=== PATIENT | female | born 1940 | race Caucasian/White ===

== ENCOUNTER → 2017-09-02 | Outpatient (CLI) | payer MEDICARE, BC ==
[~2017-09-02] MED LIST: GABA300 PO; Hydrocodone-Ap1 EA20 PO; IBUP800 PO; Oxycodone-Apap1 EAC3 PO; Triamterene W/1 EACH
[2017-09-06 13:05] LABS: HPV Genotype 16 Not Detected (NOTDET); HPV Genotype 18 Not Detected (NOTDET); HPV High Risk Other Not Detected (NOTDET)
== END | disposition home or self-care (01) ==
LOC: LAB SHORT 13:07 → OLS 13:07
PROVIDERS: Obstetrics & Gynecology Gynecology
DX: Z91.89 Other specified personal risk factors, not elsewhere classified (principal)
CPT/HCPCS: 87624; G0123

== ENCOUNTER → 2018-01-28 | Outpatient (CLI) | payer MEDICARE, BC | END | disposition home or self-care (01) | LOC: LAB SHORT 08:32 → LAB EV 08:32 | DX: M54.5 Low back pain (principal); G89.4 Chronic pain syndrome | CPT/HCPCS: G0480 ==

== ENCOUNTER → 2019-03-30 | Outpatient (CLI) | payer MEDICARE, BC ==
[2019-03-31 15:07] LABS: HPV 16 Negative (Negative); HPV 18 Negative (Negative); HPV OTHER HR TYPES Negative (Negative)
== END | disposition home or self-care (01) ==
LOC: LAB 11:30 → LAB SHORT 11:30
PROVIDERS: Obstetrics & Gynecology Gynecology
DX: Z91.89 Other specified personal risk factors, not elsewhere classified (principal)
CPT/HCPCS: 87624; G0123

== ENCOUNTER 2020-01-22 11:41 | Emergency (ER) | payer MEDICARE, BC ==
[~2020-01-22] VITALS: Ht 167.6 cm; Wt 53.5 kg
[~2020-01-22 11:41] MED LIST changes: +DYAZIDE 37.5-21 EACH PO; +GABAPENTIN600 MG PO; +LATANOPROST2.5 M1 BOTHEYES
[2020-01-22 12:23] LABS: BASOPHILS ABSOLUTE AUTO 0.07 K/mm3 (0.00-0.23); BASOPHILS PERCENT AUTO 1 % (0-2); EOSINOPHILS ABSOLUTE AUTO 0.14 K/mm3 (0.00-0.68); EOSINOPHILS PERCENT AUTO 2 % (0-6); Hematocrit 38.9 % (33.0-51.0); Hemoglobin 12.3 g/dL (11.5-16.0); IMMATURE GRAN ABSOLUTE AUTO 0.03 K/mm3 (0.00-0.10); IMMATURE GRAN PERCENT AUTO 1 % (0-1); LYMPHOCYTES ABSOLUTE AUTO 1.63 K/mm3 (0.84-5.20); LYMPHOCYTES PERCENT AUTO 25 % (21-46); MONOCYTES ABSOLUTE AUTO 0.62 K/mm3 (0.16-1.47); MONOCYTES PERCENT AUTO 10 % (4-13); Mean Corpuscular HGB Conc 31.6 g/dL (31.5-36.5); Mean Corpuscular Volume 98 fL (80-100); Mean Platelet Volume 10.5 fL (9.1-12.4); NEUTROPHILS ABSOLUTE AUTO 3.99 K/mm3 (1.96-9.15); NEUTROPHILS PERCENT AUTO 61 % (41-73); Platelet Count 225 K/mm3 (150-400); RDW Coefficient Variation 12.5 % (11.7-14.2); RDW Standard Deviation 45.3 fL (35.1-46.3); Red Blood Cell Count 3.97 M/mm3 (3.80-5.20); White Blood Cell Count 6.48 K/mm3 (4.00-11.30)
[2020-01-22 12:46] LABS: Albumin/Globulin Ratio 1.1 (0.8-1.8); Bilirubin, Total 0.4 mg/dL (0.1-1.0); Bun/Creatinine Ratio 26.1 (12.0-20.0); Calcium, Blood 8.7 mg/dL (8.5-10.1); Creatinine, Blood 1.15 mg/dL (0.40-1.00); Globulin, Blood 3.6 g/dL (2.2-4.0); Potassium, Blood 3.7 mmol/L (3.5-5.5); Total Protein, Blood 7.6 g/dL (6.4-8.2)
[2020-01-22 14:22] LABS: Source, Urine Clean Catch
[2020-01-22 14:27] LABS: Bilirubin, Urine Neg (Neg); Blood, Urine Neg (Neg); Glucose Qualitative, Urine Neg (Neg); Ketones, Urine 3+ (Neg); Leukocyte Esterase, Urine Neg (Neg); Nitrite, Urine Neg (Neg); Protein, Urine 1+ (Neg); Urobilinogen, Urine NORM (Normal)
[2020-01-22 14:28] LABS: Appearance, Urine Clear (Clear); Color, Urine Yellow (P-Yellow)
[2020-01-22] MEDS ORDERED: ONDA4ODT MM (14:54)
[2020-01-22] MEDS ORDERED: HYDR1TAB94 PO ×2 (14:54→15:12)
== END 2020-01-22 15:45 | disposition home or self-care (01) ==
LOC: ER 11:41
PROVIDERS: Emergency Medicine; Physician Assistant
DX: M25.561 Pain in right knee (principal); M79.651 Pain in right thigh; R11.0 Nausea; Z88.0 Allergy status to penicillin; Z88.5 Allergy status to narcotic agent; Z88.8 Allergy status to other drugs, medicaments and biological substances; Z88.6 Allergy status to analgesic agent; I10 Essential (primary) hypertension; Z79.899 Other long term (current) drug therapy; F17.200 Nicotine dependence, unspecified, uncomplicated
CPT/HCPCS: 36415; 73562-RT; 80053; 85025; 96374; 96375; 96376; 99283-25; J1170; J2405; J2550

== ENCOUNTER 2021-06-28 10:52 | Emergency (ER) | payer MEDICARE, BC ==
[~2021-06-28] VITALS: Ht 167.6 cm; Wt 55.8 kg
[~2021-06-28 10:52] MED LIST changes: +HYDR1TAB94 PO; +ONDA4ODT MM
[2021-06-28] MEDS ORDERED: Norco 5-325 Ta1 EACH PO (13:09)
== END 2021-06-28 13:37 | disposition home or self-care (01) ==
LOC: ER 10:52
DX: S52.022A Displaced fracture of olecranon process without intraarticular extension of left ulna, initial encounter for closed fracture (principal); I10 Essential (primary) hypertension; F17.200 Nicotine dependence, unspecified, uncomplicated; Z88.0 Allergy status to penicillin; Z88.6 Allergy status to analgesic agent; Z88.8 Allergy status to other drugs, medicaments and biological substances; Z79.899 Other long term (current) drug therapy; W19.XXXA Unspecified fall, initial encounter
CPT/HCPCS: 29105; 73080; 99283-25

== ENCOUNTER 2022-10-07 06:43 | Day surgery (SDC) | payer MEDICARE, BC ==
[~2022-10-07] VITALS: Ht 167.6 cm; Wt 53.9 kg
[~2022-10-07 06:43] MED LIST changes: +Norco 5-325 Ta1 EACH PO
[2022-10-07] MEDS ORDERED: Ventolin/Prove6.7 GM INH (07:17)
[2022-10-07] MEDS ORDERED: OXYCODONE-ACET1 EAC3 PO (07:18)
[2022-10-07] MEDS ORDERED: AMLODIPINE BESYL5 MG PO (07:19)
--- NOTE | 2022-10-07 07:25 | NUR ---
10/07/22 0725 Blas Lacy CALL LIGHT WITHIN REACH. TETRACAINE IN RIGHT EYE AT [address] REYES AWARE OF PT'S ALLERGY TO LIDOCAINE AND PROCAINE. DR. REYES IS OK TO PROCEED WITH TETRACAINE DROPS PRE-OP. WILL CONTINUE TO MONITOR PT.
--- NOTE | 2022-10-07 08:21 | NUR ---
10/07/22 0821 Loreta Jeffries NO LIDOCAINE USED. STERILE TETRACAINE OPENED ONTO FILED.
== END 2022-10-07 08:54 | disposition home or self-care (01) ==
LOC: ORSCSDS 06:43
PROVIDERS: Student in an Organized Health Care Education/Training Program
PROC: 08DJ3ZZ Extraction of Right Lens, Percutaneous Approach (ICD-10-PCS; principal; 2022-10-07 08:00)
DX: H25.13 Age-related nuclear cataract, bilateral (principal); H40.001 Preglaucoma, unspecified, right eye; H40.1124 Primary open-angle glaucoma, left eye, indeterminate stage; J44.9 Chronic obstructive pulmonary disease, unspecified; I10 Essential (primary) hypertension; F17.210 Nicotine dependence, cigarettes, uncomplicated; Z79.899 Other long term (current) drug therapy
CPT/HCPCS: A9270; J2001; J2250; J7040; V2632

== ENCOUNTER 2022-10-14 09:16 | Day surgery (SDC) | payer MEDICARE, BC ==
[~2022-10-14] VITALS: Ht 167.6 cm; Wt 53.5 kg
[~2022-10-14 09:16] MED LIST changes: +AMLODIPINE BESYL5 MG PO; +OXYCODONE-ACET1 EAC3 PO; +Ventolin/Prove6.7 GM INH
[2022-10-14] MEDS ORDERED: Cyclobenzaprine5 MG PO (09:41)
--- NOTE | 2022-10-14 09:45 | NUR ---
10/14/22 0945 Blas Lacy CALL LIGHT WITHIN REACH. TETRACAINE IN AT LEFT EYE AT 0940 AND PLEDGETT IN AT 0942
--- NOTE | 2022-10-14 11:20 | NUR ---
10/14/22 1120 SEAN DUBON PT TOOK 2 PUFFS OF HER VENTOLIN INHALER ONCE IN HER RECLINER
== END 2022-10-14 11:29 | disposition home or self-care (01) ==
LOC: ORSCSDS 09:16
PROVIDERS: Student in an Organized Health Care Education/Training Program
PROC: 08DK3ZZ Extraction of Left Lens, Percutaneous Approach (ICD-10-PCS; principal; 2022-10-14 10:30)
DX: H25.12 Age-related nuclear cataract, left eye (principal); Z96.1 Presence of intraocular lens; I10 Essential (primary) hypertension; J45.909 Unspecified asthma, uncomplicated; F17.210 Nicotine dependence, cigarettes, uncomplicated; Z79.899 Other long term (current) drug therapy
CPT/HCPCS: A9270; J2250; J3010; J7040; V2632